=== PATIENT | female | born 1985 | race Caucasian/White ===

== ENCOUNTER 2025-02-08 09:04 | Outpatient (REF) | payer BC, SELFPAY ==
[2025-02-08 14:03] LABS: MANUAL DIFF FLAG NO
[2025-02-08 14:17] LABS: Hematocrit 22.7 % (37.0-47.0); Imm Gran Abs Auto 0.03 X10*3/uL (0.00-0.03); Imm Gran Pct Auto 0.6 % (0.0-0.4); Lymphocytes Absolute Auto 1.0 X10*3/uL (1.2-4.9); Mean Corpuscular HGB Conc 28.2 g/dl (31.0-35.0); Mean Corpuscular Hemoglobin 29.2 pg (27.0-33.0); Mean Corpuscular Volume 103.7 fL (80.0-98.0); NRBC Abs Auto 0.000 X10*3/uL (0.0-0.012); NRBC Pct Auto 0.0 /100WBC (0.0-0.2); Platelet Count 399 X10*3/uL (160-400); Red Blood Count 2.19 X10*6/uL (4.20-5.50); White Blood Count 5.2 X10*3/uL (4.8-10.8)
[2025-02-08 14:30] LABS: Hemoglobin 6.4 g/dl (12.0-16.0)
== END 2025-02-08 09:05 | disposition home or self-care (01) ==
LOC: HO.HMGCLDS 09:04
PROVIDERS: PCP Nurse Practitioner Family; Visit Provider Nurse Practitioner Family
DX: R53.83 Other fatigue (principal)
CPT/HCPCS: 36415; 85025

== ENCOUNTER 2025-02-08 09:04 | Outpatient (AMB) | payer BC, SELFPAY ==
[2025-02-08 09:17] VITALS: BP 124/72; PULSE 78; RESP 16; TEMP 37.1; O2SAT 100; BMI 18.8
--- NOTE | 2025-02-08 09:17 | AM.OFFWIN_ITS ---
Intake Vital Signs 02/08/25 09:17 Height 5 ft 5 in Weight 113 lb BMI 18.8 BP 124/72 Blood Pressure Location Lt brachial Position Sitting Respiration 16 Pulse 78 Pulse Source Pulse Oximeter Temp 98.8 F Temp Source Oral Pulse Oximetry (%) 100 Oxygen Delivery Method Room Air Intake Visit Reasons: EP congestion fatigued cough phlegm Intake Note: Pt has been having hoarse voice, cough and fatigue x2 wks . 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 She states that for the last 2 weeks however, she has had some upper respiratory congestion, and a hoarse voice. Home COVID test was negative, however she would like viral testing today if possible. Denies any fevers/chills. Denies any GI symptoms aside from a reduction in appetite. Has also been having very heavy periods. She states that she has a history of anemia, however has not had blood work in a while. Reports she used to take iron, however has not in several years. Reports she has not been able to get in with her PCP, and is concerned she is very anemic and this is the reason for her fatigue [facility] Social History Patient Tobacco Use Status: Never used Tobacco Review of Systems Const All systems reviewed & are unremarkable except as noted in HPI and below Physical Exam Vital Signs: Last Vital Signs Temp 98.8 F 02/08/25 09:17 Pulse 78 02/08/25 09:17 Resp 16 02/08/25 09:17 BP 124/72 02/08/25 09:17 Pulse Ox 100 02/08/25 09:17 Oxygen Delivery Method Room Air 02/08/25 09:17 BMI result Body Mass Index 18.8 Const General: cooperative, comfortable and no acute distress Nutritional Appearance: thin Limitations: no limitations HEENT Head: Yes normal to inspection Ears: hearing grossly normal bilaterally General nose exam: Normal external nose present Throat: Yes posterior oropharynx normal Neck Neck: Yes no lymphadenopathy Resp Effort & Inspection: normal respiratory effort Auscultation: clear to auscultation bilaterally Cardio Rate: regular rate Rhythm: regular rhythm Skin General skin exam: no rashes or lesions noted Neuro General: no focal motor deficits Extrem General: Yes capillary refill normal and Yes no clubbing, cyanosis or edema Psych Appearance: grossly normal Mental Status: mental status grossly normal Speech and movement: Normal speech and movement present Assessment & Plan Assessment & Plan (1) Fatigue: Code(s): R53.83 - Other fatigue Qualifiers: Fatigue type: unspecified Qualified Code(s): R53.83 - Other fatigue Plan: Patient with several weeks of worsening fatigue. Has had very heavy periods, and has had iron deficiency anemia in the past. I recommended she start taking iron supplements [id number]. She has not been able to get in with her PCP. I ordered a CBC and we discussed that results will be copied to her PCP who, depending on results, can follow up with patient. She is considering control/IUD placement to help control periods. 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 She has also had some URI symptoms - I also obtained a COVID/flu/RSV swab in the office today, and patient aware she will be notified of results once these are available. Assessment is unremarkable. I encouraged patient to follow up with PCP regularly, and she may return to the clinic as needed. All questions were answered and patient verbalizes understanding and agrees to plan. Orders: Orders Complete Blood Count Auto Diff Today R5 - Other fatigue SARS-CoV2/FLU/RSV Today R583 - Other fatigue Coding Level of Care Code Est Pt Level 4 (68527) Diagnoses Fatigue, unspecified type R5 Fatigue type: unspecified
== END 2025-02-08 10:25 | disposition home or self-care (01) ==
PROVIDERS: PCP Nurse Practitioner Family; Visit Provider Nurse Practitioner Family
DX: R53.83 Other fatigue (principal)

== ENCOUNTER 2025-02-08 10:04 | Outpatient (REF) | payer BC, SELFPAY ==
[2025-02-08 15:05] LABS: Resp Syncy Virus RNA Qual PCR NEGATIVE (Negative); SARS COV2 PCR INHOUSE NEGATIVE (Negative)
== END 2025-02-08 10:05 | disposition home or self-care (01) ==
LOC: HO.LAB 10:04
PROVIDERS: Visit Provider Nurse Practitioner Family
DX: Z03.818 Encounter for observation for suspected exposure to other biological agents ruled out (principal)
CPT/HCPCS: 87637

== ENCOUNTER 2025-02-08 15:38 | Emergency (ER) | payer BC, SELFPAY ==
[2025-02-08] VITALS (8 sets, daily range): BP systolic 111–136; BP diastolic 63–80; PULSE 61–78; RESP 16–18; TEMP 36.3–37.4; O2SAT 98–100; BMI 19.3
--- NOTE | 2025-02-08 16:00 | ED.GENADULT ---
HPI - General Adult General Chief complaint: Recheck/Abnormal Lab/Rx Stated complaint: anemia Time Seen by Provider: 02/08/25 16:00 History of Present Illness ED Provider: Caren Verdugo [facility] narrative: 39-year-old female with a history of iron-deficiency anemia 1 time in the past several years ago after heavy menstrual cycles presents to the ED at the request of urgent care for a low H&H level. She was sent from urgent care for a hemoglobin level of 6.4 after a week of heavy menstruation. Reports generalized fatigue, malaise. Also reports that she had a common cold last week but has been feeling better. Her COVID, flu, RSV was negative urgent care. She denies any chest pain or pressure, shortness of breath, abdominal pain. No nausea, vomiting, diarrhea or constipation. No fever, chills. No active vaginal bleeding. No hematuria. No dysuria, urgency or frequency. Related Data Previous Rx's ?Medication ?Instructions ?Recorded meloxicam 15 mg tablet 15 mg PO DAILY #14 tabs 02/07/23 Allergies Allergy/AdvReac Type Severity Reaction Status Date / Time No Known Allergies Allergy Verified 02/08/25 15:54 Review of Systems Review of Systems: ROS is otherwise negative unless mentioned in HPI. [facility] Social History Social History Patient Tobacco Use Status: Never used Tobacco Physical Exam ED Exam Exam: Nursing notes and vital signs reviewed. Constitutional: Well-appearing, NAD. Alert. Oriented X3. Eyes: Pupils equal, round and reactive to light. ENT: Pharynx normal. Neck: Normal inspection. Neck supple. CVS: Normal heart rate and rhythm. Pulses normal. Respiratory: No respiratory distress. Breath sounds normal. Abdomen: Soft and nontender. Skin: Skin warm and dry. Normal skin color. Extremities: No lower extremity edema. Neuro: Oriented X 3. No motor deficit. Vital Signs: Vital Signs - 24 hr 02/08/25 15:52 02/08/25 16:39 02/08/25 17:43 Temperature 97.3 F 97.4 F 98.7 F Pulse Rate 71 78 67 Respiratory Rate 18 16 16 Blood Pressure 136/80 124/63 122/76 Pulse Oximetry 100 100 Oxygen Delivery Method Room Air Room Air 02/08/25 18:00 02/08/25 19:15 02/08/25 20:12 Temperature 98.7 F 99.3 F 99.4 F Pulse Rate 67 63 64 Respiratory Rate 16 18 16 Blood Pressure 121/80 121/73 111/75 Pulse Oximetry 100 Oxygen Delivery Method Room Air 02/08/25 20:46 Temperature 98.6 F Pulse Rate 61 Respiratory Rate 18 Blood Pressure 125/77 Pulse Oximetry 98 Oxygen Delivery Method Room Air BMI result Body Mass Index 19.3 Course Course Course Narrative: RME: 39-year-old female presents to ED for anemia. Patient is sent from urgent Care for hemoglobin of 6 0.4/. Patient is presently not having any bleeding but history of heavy menstruation. Repeat labs ordered Medications Administered Discontinued Medications Generic Name Dose Route Start Last Admin Trade Name Freq PRN Reason Stop Dose Admin Acetaminophen 650 mg 02/08/25 17:16 02/08/25 17:28 Acetaminophen 325 Mg Tablet PO 02/08/25 17:17 650 mg ONCE ONE Administration Potassium Chloride 40 meq 02/08/25 16:35 02/08/25 16:52 Potassium Chloride Er 20 Meq Tab.Er.Prt PO 02/08/25 16:36 40 meq ONCE ONE Administration Medical Decision Making Medical Decision Making MDM Narrative: Upon my assessment she appears well. She is very anxious, reports that she does not like hospitals. We discussed extensively the importance of getting an EKG as her hemoglobin level initially on arrival here was 6.3. On repeat she was 7.1 in our ED, which I repeated with concern for laboratory error, as this morning she was lower. Upon repeat she is 6.5, correlating with the anemia and her symptomatic fatigue. She is agreeable to ER observation for administration of 1 unit of packed red blood cells. Consent was obtained at bedside by me. Her potassium level is low at 3.1. She was agreeable to the oral potassium supplementation but again declined EKG monitoring. We discussed extensively how I can not rule out underlying cardiac arrhythmia if we can not obtain an EKG however she tells me that the EKG wires make her very nervous and has declined. She was then again asked by staff certified nurse midwife, medic technician staff, and continues to decline. At this time we will transfuse the patient with 1 unit of red blood cells and reassess. She declines admission, as I presumptively discussed this with her in the room, and she does not want to stay in the hospital. 2049-- her blood transfusion as finished, she reportedly feels much better. She is anxious to leave and does not want to stay in the ED any longer. We again discussed extensively the importance of following up outpatient with Hematology, I again recommended strongly that she be admitted to the hospital for further workup but she has again declined. She also refused to provide a urinalysis sample while in the ED today. She otherwise appears well, expresses understanding with return precautions to the ED and follow up outpatient instructions. Differential Diagnosis Differential Diagnoses: The differential diagnosis associated with the presentation includes Anemia, GI bleeding, intra-abdominal, intrathoracic bleeding, electrolyte abnormalities Admission/Observation Consideration of admission/observation: Escalation of care including admission/observation considered (Yes, considered and strongly recommended to the patient, but she has declined at this time.) Lab Data MDM Lab Attestation statement: I reviewed the patient's lab results. (Significant anemia, hemoglobin 6.5.) 02/08/25 16:51 02/08/25 16:08 Labs: Lab Results 02/08/25 02/08/25 Range/Units 16:08 16:51 WBC 6.1 6.5 (4.8-10.8) X10*3/uL RBC 2.35 L 2.17 L (4.20-5.50) X10*6/uL Hgb 7.1 L 6.5 L* (12.0-16.0) g/dl Hct 23.9 L 22.1 L (37.0-47.0) % MCV 101.7 H 101.8 H (80.0-98.0) fL MCH 30.2 30.0 (27.0-33.0) pg MCHC 29.7 L 29.4 L (31.0-35.0) g/dl RDW 16.5 H 16.2 H (11.0-16.0) % Plt Count 374 325 (160-400) X10*3/uL MPV 8.0 L 8.0 L (9.4-12.3) fL Immature Gran % (Auto) 1.2 H 1.2 H (0.0-0.4) % Neut % (Auto) 62.7 66.4 (45-73) % Lymph % (Auto) 20.6 18.0 L (20-40) % Ness % (Auto) 13.0 H 11.6 H (2-11) % Eos % (Auto) 1.8 2.0 (0-4) % Baso % (Auto) 0.7 0.8 (0-2) % Lymph # (Auto) 1.3 1.2 (1.2-4.9) X10*3/uL Ness # (Auto) 0.8 0.8 (0.1-1.2) X10*3/uL Eos # (Auto) 0.1 0.1 (0.0-0.4) X10*3/uL Baso # (Auto) 0.0 0.1 (0.0-0.2) X10*3/uL Abs Immat Gran (auto) 0.07 H 0.08 H (0.00-0.03) X10*3/uL Absolute Neuts (auto) 3.8 4.3 (2.0-8.3) x10*3/uL Absolute Nucleated RBC 0.000 0.020 H (0.0-0.012) X10*3/uL Nucleated RBC % (auto) 0.0 0.3 H (0.0-0.2) /100WBC PT 9.9 L (11.2-13.5) SEC INR 0.8 L (0.9-1.1) APTT 25.6 L (26.7-34.1) SEC Sodium 145 (135-145) mmol/L Potassium 3.1 L (3.3-5.1) mmol/L Chloride 113 H (96-108) mmol/L Carbon Dioxide 26 (22-29) mmol/L Anion Gap 9 L (12-20) BUN 10 (9-16) mg/dL Creatinine 0.56 (0.5-1.4) mg/dL Estim Creat Clear Calc 109.4 Estimated GFR > 60 Random Glucose 93 (60-115) mg/dL Calcium 9.0 (8.4-10.2) mg/dL Total Bilirubin 0.2 (0.0-1.0) mg/dL AST 50 H (5-31) U/L ALT 51 H (0-31) U/L Alkaline Phosphatase 95 (39-117) U/L Total Protein 6.5 (6.5-8.0) g/dL Albumin 4.2 (3.5-5.0) g/dL Blood Type A Positive Antibody Screen NEGATIVE Crossmatch See Detail Independent Interpretation I performed an independent interpretation of an: EKG (Ordered, but refused by patient.) External Record Review External record reviewed: Office record, Outpatient record, Prior outpatient labs (Earlier this morning, hemoglobin 6.3.) and Primary care record Tests considered The following testing was considered but not selected: EKG, chest x-ray, both declined by patient. Chronic Conditions Patient?s care impacted by: Other (Anemia of unclear source) Social Determinants Patient?s care significantly limited by Social Determinants of Health including: Problems related to primary support group and Other Social Determinant of Health (Anxiety related to hospitals) Discharge Plan Discharge Clinical Impression: Anemia Patient Disposition: Home, Self-Care Instructions: Anemia (ED) Additional Instructions: As we discussed, you were found to be anemic in the ED today. It is very important that he follow up with Hematology outpatient to discuss your underlying anemia. We strongly recommended that you be admitted to the hospital for further workup, but you have declined. With any worsening complaints at any time, please seek re-evaluation in the ED. Prescriptions: No Action meloxicam 15 mg tablet 15 mg PO DAILY Qty: 14 0RF Referrals: [facility] [place] [Provider Group] Interventions: ED Discharge Assessment Last Done: 02/08/25 20:57 Discharge Date/Time: 02/08/25 20:59 Print Language: [place]
[2025-02-08 16:15] LABS: MANUAL DIFF FLAG NO
[2025-02-08 16:17] LABS: Hematocrit 23.9 % (37.0-47.0); Hemoglobin 7.1 g/dl (12.0-16.0); Imm Gran Abs Auto 0.07 X10*3/uL (0.00-0.03); Imm Gran Pct Auto 1.2 % (0.0-0.4); Lymphocytes Absolute Auto 1.3 X10*3/uL (1.2-4.9); Mean Corpuscular HGB Conc 29.7 g/dl (31.0-35.0); Mean Corpuscular Hemoglobin 30.2 pg (27.0-33.0); Mean Corpuscular Volume 101.7 fL (80.0-98.0); NRBC Abs Auto 0.000 X10*3/uL (0.0-0.012); NRBC Pct Auto 0.0 /100WBC (0.0-0.2); Platelet Count 374 X10*3/uL (160-400); Red Blood Count 2.35 X10*6/uL (4.20-5.50); White Blood Count 6.1 X10*3/uL (4.8-10.8)
[2025-02-08 16:22] LABS: INTERNATIONAL NORM RATIO 0.8 (0.9-1.1); Prothrombin Time 9.9 SEC (11.2-13.5)
[2025-02-08 16:25] LABS: Partial Thromboplastin Time 25.6 SEC (26.7-34.1)
[2025-02-08 16:33] LABS: Alanine Aminotransferase 51 U/L (0-31); Albumin Level 4.2 g/dL (3.5-5.0); Alkaline Phosphatase 95 U/L (39-117); Anion Gap 9 (12-20); Aspartate Amino Transferase 50 U/L (5-31); Blood Urea Nitrogen 10 mg/dL (9-16); Calcium 9.0 mg/dL (8.4-10.2); Carbon Dioxide 26 mmol/L (22-29); Chloride 113 mmol/L (96-108); Creatinine Clr Calc Pharmacy 109.4; Estimated Glomerular Filt Rate > 60; Potassium 3.1 mmol/L (3.3-5.1); Sodium 145 mmol/L (135-145); Total Protein 6.5 g/dL (6.5-8.0)
--- NOTE | 2025-02-08 16:40 | PC.NURSE ---
pt refusing EKG
[2025-02-08] MEDS: Potassium Chloride ER 20 MEQ TAB.ER.PRT 40 MEQ PO (16:52)
[2025-02-08 16:53] LABS: MANUAL DIFF FLAG NO
[2025-02-08 16:57] LABS: Hematocrit 22.1 % (37.0-47.0); Imm Gran Abs Auto 0.08 X10*3/uL (0.00-0.03); Imm Gran Pct Auto 1.2 % (0.0-0.4); Lymphocytes Absolute Auto 1.2 X10*3/uL (1.2-4.9); Mean Corpuscular HGB Conc 29.4 g/dl (31.0-35.0); Mean Corpuscular Hemoglobin 30.0 pg (27.0-33.0); Mean Corpuscular Volume 101.8 fL (80.0-98.0); NRBC Abs Auto 0.020 X10*3/uL (0.0-0.012); NRBC Pct Auto 0.3 /100WBC (0.0-0.2); Platelet Count 325 X10*3/uL (160-400); Red Blood Count 2.17 X10*6/uL (4.20-5.50); White Blood Count 6.5 X10*3/uL (4.8-10.8)
[2025-02-08 17:03] LABS: Hemoglobin 6.5 g/dl (12.0-16.0)
--- NOTE | 2025-02-08 20:14 | PC.NURSE ---
Caren TEMP RECRUITER made aware of temp, no other sx/reactions noted. pt reports she would like to leave. per TEMP RECRUITER, vitals in 30 minutes then will plan for discharge.
== END 2025-02-08 20:59 | disposition home or self-care (01) ==
PROVIDERS: Nurse Practitioner; Physician Assistant; Emergency Provider Emergency Medicine; PCP Nurse Practitioner Family
DX: D64.9 Anemia, unspecified (principal); R79.89 Other specified abnormal findings of blood chemistry; Z79.899 Other long term (current) drug therapy; Z51.81 Encounter for therapeutic drug level monitoring
CPT/HCPCS: 36415; 80053; 85025; 85610; 85730; 86850; 86900; 86901; 86923; 99284; P9016

== ENCOUNTER → 2025-02-22 11:37 | Outpatient (BNV) | payer BC, SELFPAY | PROVIDERS: PCP Nurse Practitioner Family; Referring Provider Nurse Practitioner Family; Visit Provider Nurse Practitioner Family | DX: D50.9 Iron deficiency anemia, unspecified (principal); D72.819 Decreased white blood cell count, unspecified | CPT/HCPCS: 99204 ==